=== PATIENT | female | born 2000 | race Hispanic/Latino ===

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

== ENCOUNTER 2019-08-29 06:17 | Emergency (ER) | payer OTHER ==
[2019-08-29] MEDS ORDERED: Acetaminophen 500 MG TAB ONE (06:54)
[2019-08-29 06:55] LABS: Bilirubin Negative (Negative); Blood, Urine Negative (Negative); Clarity Clear (Clear); Glucose, Urine (Dipstick) Normal (Negative); Leukocyte Negative Leu/uL (Negative); Nitrite Negative (Negative); Protein, Urine (Dipstick) Negative (Neg-Trace); Urobilinogen Normal mg/dL (Less than 2)
[2019-08-29 06:57] LABS: Pregnancy Test - Urine (BHCG) Negative (Negative); Pregu Control Background? CLEAR/WHITE (CLR/WHITE); Pregu Control Bar Appear? YES (CONTROL BAR); Specific Gravity 1.031 (1.002-1.036)
== END 2019-08-29 07:15 | disposition home or self-care (01) ==
LOC: ERS 06:17
DX: R10.30 Lower abdominal pain, unspecified (principal)
CPT/HCPCS: 81003; 81025; 99284

== ENCOUNTER 2022-05-08 10:39 | Emergency (ER) | payer MEDICAID, SELFPAY | END 2022-05-08 11:49 | disposition home or self-care (01) | LOC: ERS 10:39 | DX: B34.9 Viral infection, unspecified (principal) | CPT/HCPCS: 87804; 99283 ==

== ENCOUNTER 2022-08-02 15:23 | Emergency (ER) | payer MEDICAID, SELFPAY ==
[2022-08-02] MEDS ORDERED: Boostrix 0.5 ML (Tdap) VIAL (>/=7 yrs of age) ONE (16:42)
== END 2022-08-02 16:50 | disposition home or self-care (01) ==
LOC: ERS 15:23
DX: S62.316A Displaced fracture of base of fifth metacarpal bone, right hand, initial encounter for closed fracture (principal); S60.414A Abrasion of right ring finger, initial encounter; Y04.0XXA Assault by unarmed brawl or fight, initial encounter; Z23 Encounter for immunization
CPT/HCPCS: 26600; 90471; 90715

== ENCOUNTER 2024-04-20 11:35 | Emergency (ER) | payer SELFPAY ==
[2024-04-20] MEDS ORDERED: Famotidine 20 MG TAB ONE (12:20)
[2024-04-20] MEDS ORDERED: Mag-Al 1200 mg/1200 mg/30 ML UDCUP ONE (12:23)
[2024-04-20] MEDS ORDERED: Lidocaine Viscous Sol 2% 15 ml UD Cup ONE (12:24)
== END 2024-04-20 12:36 | disposition home or self-care (01) ==
LOC: ERS 11:35
DX: K21.9 Gastro-esophageal reflux disease without esophagitis (principal); F17.290 Nicotine dependence, other tobacco product, uncomplicated
CPT/HCPCS: 99283

== ENCOUNTER 2025-02-13 18:35 | Emergency (ER) | payer SELFPAY ==
[2025-02-13] MEDS ORDERED: Ketorolac Tromethamine 30 MG (1 mL) VIAL ONE (20:02)
== END 2025-02-13 20:21 | disposition home or self-care (01) ==
LOC: ERS 18:35
DX: M94.0 Chondrocostal junction syndrome [Tietze] (principal); F17.290 Nicotine dependence, other tobacco product, uncomplicated
CPT/HCPCS: 71045; 93005; 96372; J1885